=== PATIENT | male | born 1995 | race Caucasian/White ===

== ENCOUNTER 2020-08-01 15:30 | Emergency (ER) | payer SELFPAY ==
[2020-08-01 15:31] VITALS: BP 139/82; PULSE 90; RESP 16; TEMP 36.5; O2SAT 100; BMI 29.9
--- NOTE | 2020-08-01 17:58 | ED.VIS.GEN ---
History of Present Illness Chief Complaint: Lower Extremity Injury Informant: Patient Onset: Today Narrative: Patient sent from urgent care for right foot fracture. He states was on a ladder at 1 PM when the ladder went out, landed on his feet. No head injuries. No neck or back pain. States he took aspirin after the incident. He went to urgent care who took x-rays reported he fractured across his whole foot therefore he sent here. He denies any significant pain at this time. He does not want any medications. No history of fractures. Has had an appendectomy in the past. Denies any allergies. Prior similar symptoms: No Past Medical History - Allergies and Home Meds Allergies/Adverse Reactions: Allergies No Known Allergies Allergy (Verified 08/01/20 15:31) Primary Care Physician: Care Physician,No Primary [Primary Care Provider] - Past Medical History: None Surgical History: appendectomy Review of Systems General: Denies: Chills, Fever, Sweats Eyes: Denies: Visual changes - bilaterally, Diplopia ENT: Denies: Rhinorrhea, Sore throat Cardiovascular: Denies: Chest pain, Palpitations Respiratory: Denies: Dyspnea, Cough, Dyspnea on exertion Gastrointestinal: Denies: Abdominal pain, Nausea, Vomiting, Diarrhea, Melena, Hematochezia Genitourinary: Denies: Dysuria, Hematuria, Frequency Musculoskeletal: Reports: Arthralgias. Denies: Back pain, Extremity Pain Skin: Denies: Rash, Wounds Neurological: Denies: Headache, Weakness, Numbness Physical Exam Vital Signs/Narrative: Vital Signs Temp Pulse Resp BP Pulse Ox 08/01/20 15:31 97.7 F L 90 16 139/82 H 100 Inital Vital Signs reviewed: Yes General: Well nourished, Well developed, No Acute Distress Head: Normocephalic, Atraumatic Eyes: Perrl, EOMI ENT: Moist mucous membranes, No rhinorrhea Neck: Supple, Nontender Cardiovascular: Regular rate, Regular rhythm, No murmurs Respiratory: No distress, CTA bilaterally, Chest nontender Abdomen: Soft, Nontender, Nondistended, Normal bowel sounds Back: Nontender, Normal Inspection Extremities: No edema, - - Right lower extremity no knee or ankle tenderness. There is swelling across the whole dorsal foot, there is tenderness on the dorsal aspect of the foot. Skin is intact. Neurovascular intact. Skin: Normal color, No rash Neurological: Alert, Oriented x3, Cranial nerves II-XII grossly intact, Normal Strength, Normal Sensation Psychological: Normal affect, Normal Mood Diagnostic/Tx/Re-eval Clinical Impression(s) from Imaging Studies Lower Extremity CT 08/01/20 18:35 IMPRESSION: 1. Fracture/dislocation of the first through third tarsometatarsal joints. 2. Fractures of the bases of the fourth and fifth metatarsals without disc placement. Electronically Signed: Ángel Ponce DO at 19:26 EDT Tel [phone], Service support , - Medical Decision Making Patient's outside facility x-rays were loaded into the system I reviewed it, as concerns for Lisfranc injury with fracture dislocations of the bases of the metatarsals. I spoke with Dr. Mckeon, findings. Patient was in no acute distress. Agreed with obtaining a CT scan of the fractures for evaluation for surgical planning. Initially declined any medicines however later did agree with and oxycodone. He was placed in a short leg plaster splint, discussed nonweightbearing, crutches. Prescription for pain control. He will be seen as an outpatient the next few days. Procedure note: Splinting verbal consent. Nylon sleeve, Curlex dressing was placed. A 5 inch short leg plaster splint was placed, Reji wrap. Neurovascular intact post splint. Patient tolerated procedure well. ED Disposition - Plan for ED Patient: Disposition: Home or Assisted Living Diagnosis: Lisfranc fracture, Lisfranc dislocation Instructions: ED FOOT FRACTURE Prescriptions: Oxycodone HCl/Acetaminophen [Percocet 5/325] 1 tablet PO Q6H PRN PRN 3 Days #12 tablet PRN Reason: Pain Referrals: Care Physician,No Primary [Primary Care Provider] - Megha Mckeon DPM [STAFF PHYSICIAN] - 3-5 Days Additional Instructions: You have a Lisfranc fracture dislocation of your right foot. Nonweightbearing to the right lower extremity use crutches. Follow-up as discussed.
[2020-08-01] MEDS: oxyCODONE 5 MG Tablet PO (18:25)
--- NOTE | 2020-08-01 18:35 | CT_ITS ---
STUDY: CT RIGHT FOOT REASON FOR EXAM: Male, 25 years old. Fall from ladder. RADIATION DOSAGE (If Supplied By Facility): CTDIvol = ( 15.35 ) mGy, DLP = ( 499.60 ) mGycm TECHNIQUE: Thin section transaxial imaging of the foot was obtained, with sagittal and coronal reconstructed images. 3-D reconstruction was also performed. Individualized dose optimization techniques were used for this CT. COMPARISON: Foot, 08/01/2020. FINDINGS: Normal talus, calcaneus, and tarsal bones. Normal visualized tibiotalar, subtalar, talonavicular, calcaneocuboid, tarsal and tarsometatarsal articulations. There is a longitudinal fracture through the first metatarsal with dorsal displacement of the larger fragment. The inferior fragment stays in roughly anatomic position. There is also a fracture of the plantar base of the second metatarsal with dorsal dislocation. Multiple small fracture fragments are seen inferior to the middle cuneiform. There is a small chip fracture off the medial base of the third metatarsal. This is thought to be a small chip fracture is also seen along the inferior base again mild dorsal dislocation is seen of the metatarsal. There is a small chip fracture off the plantar base of the fourth metatarsal without dislocation. There is a transverse fracture through the base of the fifth metatarsal without displacement. Normal metatarsophalangeal joint of the great toe. Normal tibial and fibular sesamoid bones. Normal interphalangeal joint of the great toe. Normal phalanges of the great toe. Normal second through fifth metatarsophalangeal joints. Normal interphalangeal joints and phalanges of the lesser toes. There is diffuse soft tissue swelling about the midfoot. CT/Extremity Lower without Contra IMPRESSION: 1. Fracture/dislocation of the first through third tarsometatarsal joints. 2. Fractures of the bases of the fourth and fifth metatarsals without disc placement. Electronically Signed: Ángel Ponce DO at 19:26 EDT Tel [phone], Service support ,
== END 2020-08-01 20:16 | disposition home or self-care (01) ==
PROVIDERS: Emergency Provider Emergency Medicine
DX: S92.311A Displaced fracture of first metatarsal bone, right foot, initial encounter for closed fracture (principal); S92.321A Displaced fracture of second metatarsal bone, right foot, initial encounter for closed fracture; S92.331A Displaced fracture of third metatarsal bone, right foot, initial encounter for closed fracture; S92.344A Nondisplaced fracture of fourth metatarsal bone, right foot, initial encounter for closed fracture; S92.354A Nondisplaced fracture of fifth metatarsal bone, right foot, initial encounter for closed fracture; W11.XXXA Fall on and from ladder, initial encounter; Y93.89 Activity, other specified; Y92.9 Unspecified place or not applicable; Y99.9 Unspecified external cause status
CPT/HCPCS: 29515; 73700; 99284

== ENCOUNTER → 2020-08-02 14:44 | Outpatient (CLI) | payer OTHER, SELFPAY ==
[2020-08-01 15:31] VITALS: BMI 29.9
== END ==
PROVIDERS: Visit Provider Podiatrist
DX: Z01.810 Encounter for preprocedural cardiovascular examination (principal); S93.326A Dislocation of tarsometatarsal joint of unspecified foot, initial encounter

== ENCOUNTER 2020-08-04 18:46 | Observation (INO) | payer OTHER, SELFPAY ==
[2020-08-02 18:16] LABS: Absolute Lymphocyte Count 0.96 X10^3/uL (0.83-4.51); Absolute Neutrophil Count 4.7 X10^3/uL (2.0-7.7); Basophil# 0.04 X10^3/uL; Basophil% 0.6 % (0-1); Eosinophil# 0.14 X10^3/uL; Eosinophils% 2.1 % (0-5); Hematocrit 40.1 % (40-54); Hemoglobin 13.2 g/dL (13.0-16.5); Lymphocyte # 0.96 X10^3/ul (4.0); Lymphocyte % 14.6 % (19-41); Mean Corp Hgb Conc 32.9 g/dL (32-36); Mean Corpuscular Hgb 30.2 pg (27.0-32.0); Mean Corpuscular Volume 91.8 fL (80-94); Mean Platelet Vol. 10.9 fl (6.2-12.0); Monocyte# 0.77 X10^3/uL; Monocyte% 11.7 % (0-10); NRBC Flagged by Analyzer 0 % (0-5); Neutrophil # 4.65 X10^3/uL (2.7-7.7); Neutrophil % 70.8 % (47-70); Platelet Count 240 K/mm3 (150-450); RBC Distribution Width CV 12.4 % (11.6-14.6); Red Blood Count 4.37 M/mm3 (4.6-6.2); White Blood Count 6.6 K/mm3 (4.4-11.0)
[2020-08-02 18:33] LABS: ALB/GLOB Ratio 1.1 RATIO (0.9-2.4); AST(SGOT) 17 U/L (15-37); Alanine Aminotransfer ALT/SGPT 26 U/L (16-61); Albumin, Serum 3.9 g/dL (3.2-5.0); Alkaline Phosphatase 79 U/L (45-117); Anion Gap 4 (5-15); BUN 12 mg/dL (7-18); BUN/Creat Ratio 12.7 RATIO (10-20); Chloride 106 mmol/L (98-107); Creatinine, Serum 0.94 mg/dL (0.70-1.30); EST Glomerular Filtration Rate 102 mL/min (>60); Est Glom Filt Rate - Afr Amer 123 mL/min (>60); Globulin 3.4 g/dL (2.2-4.2); Glucose 103 mg/dL (74-106); Potassium 3.7 mmol/L (3.5-5.1); Protein, Total 7.3 g/dL (6.4-8.2); Sodium Level 139 mmol/L (136-145)
[2020-08-04] VITALS (9 sets, daily range): BP systolic 101–137; BP diastolic 63–84; PULSE 68–106; RESP 14–16; TEMP 36.8–37.4; O2SAT 93–100; BMI 30.8
[2020-08-04] MEDS: Lactated Ringers 1,000 ML 75 ML IV ×2 (12:09→18:40)
--- NOTE | 2020-08-04 13:00 | RAD_ITS ---
STUDY: X-RAY - RIGHT FOOT CLINICAL: Male, 25 years old. ORIF midfoot fracture dislocation TECHNIQUE: 3 view(s) of the foot. COMPARISON: None. FINDINGS: Intraoperative images demonstrate surgical fusions of the first through fourth tarsometatarsal joints and a fracture of the base of the first metatarsal. Alignment is near normal. RAD/Foot min 3 Views IMPRESSION: As above. Electronically Signed: Boaz Kirby MD at 22:10 EDT Tel , Service support ,
[2020-08-04] MEDS: Cefazolin 2 GM in 0.9% Normal Saline 100 ML IV (13:04)
[2020-08-04] MEDS: Bupivacaine Mpf 0.5% 30 ML VIAL (13:38)
--- NOTE | 2020-08-04 18:41 | OP.PCM_ITS ---
Problem List (1) Lisfranc fracture Status: Acute Comment: right foot (2) Nondisplaced fracture of metatarsal bone of right foot Status: Acute (3) Dislocation of foot, right, closed Status: Acute (4) Right foot pain Status: Acute Report of Operation Date of Procedure: 08/04/20 Pre-Operative Diagnosis: Right midfoot fractures (metatarsal 1,2,3,4,5) and lis franc dislocation Post-Operative Diagnosis: Right midfoot fractures (metatarsal 1,2,3,4,5) and lis franc dislocation Surgery/Procedure Performed:: Open reduction internal fixation of right Lisfranc fracture dislocation and metatarsal fracture of first metatarsal Description of Surgical Findings:: Hemostasis: Anatomic dissection and well-padded pneumatic right thigh tourniquet, 315 mmHg, 120 minutes Materials: Three 2.5 FT compression screws, one 0.045 K wire, one lis franc i nternal FiberWire brace, two 3.0 cannulated partially threaded screws, one low- profile T-plate (8 hole) Complications: None Specimens: None The patient tolerated the procedure and anesthesia well. He was transported to the PACU with vital signs stable and vascular status intact to the right lower extremity. Postoperative x-rays were reviewed prior to leaving the operating room with traumatic deformity correction with internal fixation to the first, second, third, and fourth rays in the desired position and trajectory. No additional acute injuries were noted. Postoperative orders were entered electronically. cma: yes - surgeon: Megha Mckeon DPM. 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 His date of injury was 08-01-2020. He was seen at the urgent and emergency centers in which he was pl aced in a posterior mold splint. He refused pain medications. Foot radiographs and a CT scan were obtained demonstrating nondisplaced fractures of the plantar second, third, fourth metatarsal bases, nondisplaced fracture of the fifth metatarsal base, displaced fracture of the plantar first metatarsal base extending into the the diaphysis, lis franc injury with significant diastases of the proximal first intermetatarsal space. There is also dorsal displacement of the second, third, and fourth metatarsal bases dorsally to the adjacent cuneiforms and cuboid. His epicritic sensation was diminished to the toes on clinical exam. His compartments remained soft to palpate. He had pain, apprehension, and guarding noted clinically. His dorsalis pedis and posterior tibial pulse remained palpable. The preoperative indications, planned procedure, possible benefits, risk, complications, and anticipated healing time and management were reviewed in detail with the patient. He understands and elects to proceed with surgery at this time. No guarantees were made. He understands risks and complications may include but are not limited to following: pain, swelling, scarring, need for further surgery, delayed or nonhealing, infection, blood clot, allergic reaction, arthritis, hardware failure, toe deformities, compartment syndrome, loss of limb, function, life. He also understands that there is an inherent risk during the coronavirus pandemic with being present in any healthcare facility. He understands our community risk is very low at this time and recommended safety precautions are being adhered to. This is not an elective surgery. I recommend the benefits appear to outweigh the risks for surgical correction at this time to provide a more stable and functional foot. I answe red all of his questions. We discussed surgical options and he is amendable to proceed forward with open reduction internal fixation versus arthrodesis as a last measure. The informed surgical consent and limb were signed. I answered all his questions. His preoperative history and physical and clearance exam performed by Dr. Daniel were also reviewed in detail. His preoperative diagnostic laboratory data including CBC and CMP were also reviewed without gross abnormalities. Procedure in detail: The patient was transported to the operating room via cart and placed on the operating room table in the supine position. Final verification of the patient, surgery, and limb designation was performed via the timeout procedure. The anesthesia team initiated general anesthesia. The podiatry team initiated the local preoperative anesthetic administration. Preoperative IV antibiotics were administered. A well-padded pneumatic right thigh tourniquet was placed. The right lower extremity was prepped and draped in the usual aseptic manner. An Esmarch bandage was used to perform exsanguination and surgery began after the tourniquet was inflated in the following manner: Attention was first directed to the medial foot in which an incision was made through the skin over the injury zone. Blunt dissection was performed down to the first metatarsal cuneiform area distal to the mid first metatarsal diaphysis taking care to identify, protect, and retract all neurovascular structures at this point and throughout the remainder of the surgery. The oblique cortical interruption to the plantar first metatarsal was mobilized and held with reduction clamp in which two screws were applied utilizing lag technique with proper AO fixation technique also. Next, FT compression screws were applied across the first metatarsal cuneiform joint that was hypermobile and subluxing in the sagittal plane. Intraoperative fluoroscopy was used to confirm the desired trajectory and adequate fixation was obtained. Solid fixation was achieved. An additional incision was made to the dorsal lateral foot between the second and third rays through the skin. Again, blunt dissection was performed to preserve all neurovascular structures in this region. An interval between the extensor hallucis longus and extensor digitorum brevis tendons was identified. The dorsally dislocated metatarsal bases were palpated and visualized. The digits were pulled out to length and the windlass mechanism was created to aid in reduction of the lis franc and remaining metatarsal cuneiform joints. An additional reduction tenaculum was applied to the second metatarsal base and the first medial cuneiform to reduce the diastases. Next, a nitinol looped FiberWire was applied across the anatomic location of the [place] Lisfranc ligament to allow the passage of a FiberWire internal brace. This was performed and tightened to a secured position using a Bio-Tenodesis interface screw to the medial cuneiform. The tenaculum was released and this joint was stressed demonstrating maintained fixation. The tourniquet was deflated at this time and brisk capillary refill time was noted to all digits of the right foot. No pulsatile bleeding was noted at this time or throughout the remainder of surgery. Next, a spanning 8 hole T-plate was applied to the dorsal second ray. Care was taken to leave proximal room for an additional intercuneiform internal brace placement and distally to span the area of the second metatarsal base fracture. Proper AO fixation technique was utilized and the second ray moved as a solid stable unit. No diastases was noted at the proximal first intermetatarsal space region. Next, a new interval was used to help visualize the third metatarsal base cuneiform area was mobilized adjacent to the extensor digitorum brevis. An additional mini FT compression screw was applied across this third metatarsal cuneiform joint surface utilizing proper AO fixation technique. It is noted that the third metatarsal base fracture site was at the most plantar aspect and this would not have interfered with the placement of the screw. An additional K wire was used to temporarily pin the fourth metatarsal to the cuboid due to the subluxation at this site as well. Lastly, the intercuneiform internal brace was applied into the proximal dorsal aspect of the second metatarsal base by creating a tunnel deep to the dorsal foot soft tissue anatomy. This was secured and additionally eliminated intercuneiform laxity to provide additional stability to this entire construct. Multiple postoperative x-rays were reviewed demonstrating adequate fixation including deformity reduction, hardware placement in the desired position and trajectory. Live fluoroscopy was also performed and there was no longer any instability or subluxation. Copious irrigation was performed with normal saline. Deep closure was performed with 2-0 Vicryl. Additional deep closure was performed with 3-0 Vicryl. The skin was reapproximated with 4-0 nylon utilizing horizontal mattress and simple suture technique. There was limited tension applied to the skin and care was taken to maintain an appropriate skin island between the two incision sites. Next, a postoperative dressing consisting of Betadine soaked Adaptic, gauze, Kerlix, abdominal pads were applied. Next a well-padded posterior mold splint was applied extending past the digits with the foot and ankle in a rectus position. After procedure: The patient tolerated the procedure and anesthesia well. He was transported to the PACU with vital signs stable and vascular status intact to the right lower extremity. He will stay under observation status for pain control. He was advised to maintain a strict nonweightbearing status. To ice and elevate for pain inflammation as well. He had a postoperative right lower extremity regional block performed by anesthesia. Additional intravenous and oral pain medications were ordered if needed as this regional block wears off. I will reassess him tomorrow prior to discharge. He will work on maintaining a nonweightbearing status to the right foot with physical therapy prior to discharge as well. Postoperative orders were entered electronically. Megha Mckeon DPM, [facility] [place] Grafts/Implants Used: arthex plate and screws, k-wire, internal brace - Complications none - Admit VTE Documentation VTE Present on Admission: No VTE Mechan Device Prophylaxis: SCD's VTE Pharm Prophylaxis ordered?: No Reason prophylaxis not ordered:: Procedure Not Indicated
--- NOTE | 2020-08-04 19:06 | RAD_ITS ---
STUDY: X-RAY - RIGHT FOOT CLINICAL: Male, 25 years old. POST OP RIGHT FOOT TECHNIQUE: 3 view(s) of the foot. COMPARISON: 08/01/2020 FINDINGS: Surgical fusions of the first through fourth tarsometatarsal joints with normal alignment. Surgical fusion of the base of the first metatarsal with normal alignment. Fracture of the base of the fifth metatarsal. Soft tissue swelling. RAD/Foot min 3 Views IMPRESSION: Postoperative changes as described. Fracture of the base of the fifth metatarsal. Electronically Signed: Boaz Kirby MD at 23:43 EDT Tel , Service support ,
--- NOTE | 2020-08-04 20:02 | HP.PCM_ITS ---
Problem List (1) Lisfranc fracture Status: Acute (2) Nondisplaced fracture of metatarsal bone of right foot Status: Acute (3) Dislocation of foot, right, closed Status: Acute (4) Right foot pain Status: Acute History of Present Illness Date of Admission: 08/04/20 Chief Complaint: right foot fractures The patient is a 25 year old Male that sustained a right midfoot fracture dislocation injury when he fell off of a ladder on 08-01-2020. He fell from a height of approximately 8 feet. He presented to the urgent center and was then seen in the emergency room where he was splinted. A CT scan was obtained. This is considered an unstable injury and he went for open reduction internal fixation today. He denies other injuries or complaints at this time. Past Medical History Allergies No Known Allergies Allergy (Verified 08/02/20 15:19) Surgical History: appendectomy Psychiatric History: No pertinent psych hx Lives: Spouse/ Significant Other - And 2 children Smoking Status: Former smoker - Quit April 2020 Tobacco Use: Non-smoker Alcohol: None Drugs: None Review of Systems Constitutional: Denies: Chills, Fever Eyes: Denies: Vision Change HEENT: Denies: Hard of Hearing, Nasal Congestion, Sore Throat, Visual Changes Cardiovascular: Denies: Chest Pain, Claudication, Edema Respiratory: Denies: Cough, Shortness of Breath Gastrointestinal: Denies: Nausea, Vomiting Musculoskeletal: Reports: Foot Pain. Denies: Back Pain, Leg Pain Skin: Denies: Skin Changes, Wounds Neurological: Denies: Balance problems, Blurred vision, Incoordination, Numbness Endocrine: Denies: Change in Body Habitus Hematologic/ Lymphatic: Denies: Easy Bruising, Easy Bleeding, Hx of blood clot VTE Information - Inpt Only VTE Present on Admission: No VTE Mechan Device Prophylaxis: SCD's VTE Pharm Prophylaxis ordered?: No Reason prophylaxis not ordered:: Procedure Not Indicated Patient Problems: Active and Suspected Problems Lisfranc fracture (Acute) Nondisplaced fracture of metatarsal bone of right foot (Acute) Dislocation of foot, right, closed (Acute) Right foot pain (Acute) - Physical Exam Vitals/I&O's: Vital Signs Temp Pulse Resp BP Pulse Ox 98.3 F 95 16 126/67 H 98 08/04/20 19:39 08/04/20 19:39 08/04/20 19:39 08/04/20 19:39 08/04/20 19:39 Oxygen Delivery Method Room Air Weight: 97.522 kg Body Mass Index (BMI) 30.8 Intake and Output for Last 24 Hours 08/02/20 08/03/20 08/04/20 23:59 23:59 23:59 Intake Total 2109 Balance 2109 General: Alert, Oriented x3, Cooperative HEENT: Atraumatic, PERRLA, EOMI, Normocephalic Oral: Moist Mucosa Neck: Supple Lungs: Clear to auscultation, Normal air movement Cardiovascular: Regular rate, Regular Rhythm Abdomen: Non Tender, Non-Distended Extremities: Capillary Refill Less than 3 Seconds, No Calf Tenderness, Edema - Right foot, Peripheral Pulses Normal Skin: No breakdown, Incision - Now he is postoperative with a dorsal and medial foot incision. Postoperative dressing is intact with a splint in a rectus position, - - Ecchymosis midfoot extending to the digital forefoot area Musculoskeletal: No Muscle Wasting, - - Compartments remain soft to the right foot and it remains in a rectus position. He has some reduced edema with some wrinkles noted compared to clinical visit 2 days ago Lymphatic: - - No cervical or supraclavicular adenopathy Neurological: Cranial nerves II-XII grossly intact, Neuro grossly intact, Muscle tone normal, Sensory exam intact to light touch and pain Psych/Mental Status: Normal Affect, Appropriate Current Medications Hydrocodone Bitart/Acetaminophen ([place] 5mg-325mg) 1 - 2 tablet PO Q6H PRN PRN PRN Reason: Pain Score 1-5/10 Docusate Sodium (Colace) 200 mg PO BID PRN PRN PRN Reason: Constipation Lactated Ringer's () 1,000 mls @ 75 mls/hr IV .[id number] HUGO Last Admin: 08/04/20 18:40 Dose: 75 mls/hr Documented by: Morphine Sulfate () 2 mg IV Q2H PRN PRN PRN Reason: Pain Score 6-10/10 Ondansetron HCl (Zofran) 4 mg IV Q8H PRN PRN PRN Reason: Nausea Sodium Chloride () 10 - 40 ml IV UD PRN PRN Reason: SALINE FLUSH Assessment/Plan All Active Problems Lisfranc fracture (Acute) Nondisplaced fracture of metatarsal bone of right foot (Acute) Dislocation of foot, right, closed (Acute) Right foot pain (Acute) Postoperative right lis franc fracture dislocation open reduction internal fixation Right foot pain He is postoperative right foot from earlier today. His postoperative x-rays were reviewed prior to leaving the operating room which demonstrated traumatic deformity reduction with internal fixation including plates, screws, and wire in the desired position and trajectory. No acute injuries were additionally noted. To keep his dressing and splint clean, dry, and intact. To ice and elevate for inflammation and pain control. He was provided with a right lower extremity regional block postoperative. He will also be provided with IV and oral pain medications if needed as this regional block will wear off. He will be monitored for pain control. Strict nonweightbearing was advised. He will be provided with an assistive device and work with physical therapy in the morning. He does not have any known medical comorbidities and denies history of blood clot. SCDs to the contralateral limb, incentive spirometry, and activity will be encouraged. I will follow him close while in house. code status: full code Megha Mckeon DPM, [facility] [phone]
[2020-08-05] MEDS: HYDROcodone Bitartrate/Apap 5/325 Tablet PO ×3 (01:21→09:34)
[2020-08-05 01:50] VITALS: BP 116/64; PULSE 79; RESP 16; TEMP 37.6; O2SAT 100
[2020-08-05] MEDS: Lactated Ringers 1,000 ML 75 ML IV (03:27)
[2020-08-05 03:31] VITALS: BP 104/56; PULSE 80; RESP 18; TEMP 37.4; O2SAT 99
[2020-08-05] MEDS: Morphine 2 MG/ML Syringe IV ×3 (06:13→10:38)
[2020-08-05 07:30] VITALS: BP 136/64; PULSE 78; RESP 16; TEMP 36.8; O2SAT 100
[2020-08-05] MEDS: Ketorolac 30 MG/ML Syringe IV ×2 (11:28→20:16)
[2020-08-05 11:58] VITALS: BP 160/83; PULSE 84; RESP 16; TEMP 36.9; O2SAT 99
[2020-08-05] MEDS: oxyCODONE 5 MG Tablet PO (13:07)
--- NOTE | 2020-08-05 13:07 | PCM.PROGNOTE ---
Patient Problems: Active and Suspected Problems (Last Updated 08/04/20 @ 21:[address] Megha Mckeon, [facility]) Lisfranc fracture (Acute) right foot Nondisplaced fracture of metatarsal bone of right foot (Acute) Dislocation of foot, right, closed (Acute) Right foot pain (Acute) Subjective: This 25-year-old male was seen bedside postoperative day #1 right open reduction internal fixation of Lisfranc fracture dislocation. His pain is rated as a 9 out of 10 at worst. He relates his foot feels very tight. He does have some additional feeling in his toes compared to his preoperative status. He denies fever, chill, nausea, vomiting, shortness of breath, chest pain, calf pain. - Physical Exam Vitals/I&O's: Vital Signs Temp Pulse Resp BP Pulse Ox 98.4 F 84 16 160/83 H 99 08/05/20 11:58 08/05/20 11:58 08/05/20 11:58 08/05/20 11:58 08/05/20 11:58 Oxygen Delivery Method Room Air Weight: 97.522 kg Body Mass Index (BMI) 30.8 Intake and Output for Last 24 Hours 08/03/20 08/04/20 08/05/20 23:59 23:59 23:59 Intake Total 3350 / 3350 2383.75 / 2383.75 Output Total 1250 / 1250 2750 / 2750 Balance 2099 / 2099 -366.25 / -366.25 General: Alert, Oriented x3, Cooperative HEENT: Atraumatic Extremities: No cyanosis, Capillary Refill Less than 3 Seconds - All digits right foot, No Calf Tenderness - Negative Rodney and Kathleen sign. Compartments remain soft to palpate to the right foot and leg, Edema, Peripheral Pulses Normal Skin: Incision - Well aligned and coapted with nylon sutures in place. No necrosis, erythema, streaking, or gapping. There is also a dorsal lateral foot K wire that remains in the desired position., - - Mild serosanguineous strikethrough right foot dressing Musculoskeletal: No Muscle Wasting, - - Active range of motion of all digits right foot Neurological: - - Epicritic sensation is intact to all digits of the right foot and has been restored to the dorsal aspects of all the toes except it is slightly diminished to the dorsal second toe. The epicritic sensation is also restored to light touch to the dorsal forefoot. Psych/Mental Status: Normal Affect, Appropriate Current Medications Docusate Sodium (Colace) 200 mg PO BID PRN PRN PRN Reason: Constipation Lactated Ringer's () 1,000 mls @ 75 mls/hr IV .[id number] HUGO Last Infusion: 08/05/20 11:47 Dose: 0 mls/hr Documented by: Morphine Sulfate () 3 mg IV Q2H PRN PRN PRN Reason: Pain Score 6-10/10 Ondansetron HCl (Zofran) 4 mg IV Q8H PRN PRN PRN Reason: Nausea Oxycodone HCl (Oxyir) 5 mg PO Q6H PRN PRN PRN Reason: Pain Score 6-10/10 Sodium Chloride () 10 - 40 ml IV UD PRN PRN Reason: SALINE FLUSH Medical Necessity - Tobacco Use Smoking Status: Former smoker - Quit April 2020 Tobacco Use: Non-smoker Assessment/Plan All Active Problems (Last Updated 08/04/20 @ 21:[address] Megha Mckeon DPM) Lisfranc fracture (Acute) Nondisplaced fracture of metatarsal bone of right foot (Acute) Dislocation of foot, right, closed (Acute) Right foot pain (Acute) POD #1 right lis franc fracture dislocation open reduction internal fixation Right foot pain I reviewed and discussed his case. He is currently afebrile and his vital signs are stable. His pain is uncontrolled and his pain medications were changed to an increased IV and oral medication. He was also provided with intravenous Toradol. A new dressing was reapplied including the splint. To keep his dressing and splint clean, dry, and intact. To ice and elevate for inflammation and pain control. I will continue to monitor him this afternoon to confirm if additional pain medication adjustments are needed. His pain will need to be better controlled prior to discharge home. Strict nonweightbearing was advised. He is nonweightbearing with crutch assistance. He worked with physical therapy at this point he did well. SCDs to the contralateral limb, incentive spirometry, and activity will be encouraged. I will follow him close while in house. Discharge home this afternoon or tomorrow be considered after his pain is better controlled. He would like to oyster picker his discharge medication at [facility] if possible. Megha Mckeon DPM, F[facility] [phone]
--- NOTE | 2020-08-05 13:45 | CASEMGMT ---
Social Work Note Pt is listed as self pay. Maribel [facility] Liaison, saw pt. Per Maribel notes, pt will have his dad reach out to [facility] and was also interested in [employer]. Martha Cardoza [employer]DI[employer] TRAD[employer], HAND HOSE CUTTER
[2020-08-05] MEDS: 0.9% Saline Lock 10 ML Syringe IV ×3 (14:33→20:17)
[2020-08-05] MEDS: Morphine 4 MG/ML Syringe 3 MG IV ×2 (14:34→18:18)
[2020-08-05 14:49] VITALS: BP 153/77; PULSE 73; RESP 16; TEMP 36.8; O2SAT 99
[2020-08-05] MEDS: HYDROmorphone 0.5 MG/0.5 ML SYRINGE IV (20:16)
[2020-08-05 20:50] VITALS: BP 144/84; PULSE 99; RESP 16; TEMP 38.3; O2SAT 99
[2020-08-06] MEDS: HYDROmorphone 0.5 MG/0.5 ML SYRINGE IV (02:24)
[2020-08-06] MEDS: 0.9% Saline Lock 10 ML Syringe IV (02:24)
[2020-08-06 02:50] VITALS: BP 142/80; PULSE 91; RESP 16; TEMP 37.6; O2SAT 97
[2020-08-06] MEDS: oxyCODONE 5 MG Tablet PO ×2 (05:42→11:38)
[2020-08-06 08:48] VITALS: BP 130/81; PULSE 87; RESP 18; TEMP 37.7; O2SAT 100
--- NOTE | 2020-08-06 10:11 | PCM.PROGNOTE ---
Patient Problems: Active and Suspected Problems (Last Updated 08/04/20 @ 21:[address] Megha Mckeon, [facility]) Lisfranc fracture (Acute) right foot Nondisplaced fracture of metatarsal bone of right foot (Acute) Dislocation of foot, right, closed (Acute) Right foot pain (Acute) Subjective: This 25-year-old male was seen bedside postoperative day #2 right open reduction internal fixation of Lisfranc fracture dislocation. His pain is rated as a 6 out of 10 at worst and he has not taken IV narcotic pain medication for over eight hours. He denies chill, nausea, vomiting, shortness of breath, chest pain, calf pain, cough. He relates he had a temperature in the 99s earlier today. He reports he has not had a bowel movement since surgery however denies constipation. He denies urinary retention since surgery. He reports some burning to the top of his foot and denies the dressing is too tight today. He would like to return home. - Physical Exam Vitals/I&O's: Vital Signs Temp Pulse Resp BP Pulse Ox 99.9 F H 87 18 130/81 H 100 08/06/20 08:48 08/06/20 08:48 08/06/20 08:48 08/06/20 08:48 08/06/20 08:48 Oxygen Delivery Method Room Air Weight: 97.522 kg Body Mass Index (BMI) 30.8 Intake and Output for Last 24 Hours 08/04/20 08/05/20 08/06/20 23:59 23:59 23:59 Intake Total 3350 / 3350 3183.75 / 3183.75 Output Total 1250 / 1250 4350 / 4350 Balance 2100 / 2100 -1166.25 / -1166.25 General: Alert, Oriented x3, Cooperative HEENT: Atraumatic, Normocephalic Lungs: Clear to auscultation, Normal air movement Cardiovascular: Regular rate, Regular Rhythm Extremities: No cyanosis, No edema, No Calf Tenderness - negative dex and garcia signs Skin: - - dressing and splint clean, dry, and intact in a rectus position. no strikethrough noted Musculoskeletal: No Tenderness to Palpation of Joints or Extremities, - - AROM all digits right foot Neurological: Sensory exam intact to light touch and pain Psych/Mental Status: Normal Affect, Appropriate Current Medications Docusate Sodium (Colace) 200 mg PO BID PRN PRN PRN Reason: Constipation Hydromorphone HCl (Dilaudid Inj) 0.5 mg IV Q2H PRN PRN PRN Reason: Pain Score 6-10/10 Last Admin: 08/06/20 02:24 Dose: 0.5 mg Documented by: Lactated Ringer's () 1,000 mls @ 75 mls/hr IV .[id number] HUGO Last Admin: 08/05/20 16:35 Dose: Not Given Documented by: Ketorolac Tromethamine (Toradol (Bkc)) 30 mg IV Q8H PRN PRN PRN Reason: Pain Score 4-1010 Stop: 08/07/20 19:36 Last Admin: 08/05/20 20:16 Dose: 30 mg Documented by: Ondansetron HCl (Zofran) 4 mg IV Q8H PRN PRN PRN Reason: Nausea Oxycodone HCl (Oxyir) 5 mg PO Q6H PRN PRN PRN Reason: Pain Score 6-1010 Last Admin: 08/06/20 05:42 Dose: 5 mg Documented by: Sodium Chloride () 10 - 40 ml IV UD PRN PRN Reason: SALINE FLUSH Medical Necessity - Tobacco Use Smoking Status: Former smoker - Quit April 2020 Tobacco Use: Non-smoker Assessment/Plan All Active Problems (Last Updated 08/04/20 @ 21:[address] Megha Mckeon, [facility]) Lisfranc fracture (Acute) Nondisplaced fracture of metatarsal bone of right foot (Acute) Dislocation of foot, right, closed (Acute) Right foot pain (Acute) POD #2 right lis franc fracture dislocation open reduction internal fixation Right foot pain I reviewed and discussed his case. His vital signs are stable. He had a low grade fever in the 99 and low 100 range. This may be reactive to anesthesia in the immediate post operative setting or constipation. He is asymptomatic otherwise. To stay hydrated. To monitor for any additional changes after discharge home. He would like to transition home this morning. He has elected not to take IV pain medication for the past eight hours. To ice and elevate for inflammation and pain control. Strict nonweightbearing was advised. He is nonweightbearing with crutch assistance. To continue incentive spirometry. [facility] in one to one and a half weeks. Discharge orders will be placed. Megha Mckeon DPM, F[facility] [phone]
--- NOTE | 2020-08-06 10:34 | DS.PCM_ITS ---
Discharge Date and Diagnosis - Problem List Patient Problems: Active and Suspected Problems (Last Updated 08/04/20 @ 21:[address] Megha Mckeon DPM) Lisfranc fracture (Acute) right foot Nondisplaced fracture of metatarsal bone of right foot (Acute) Dislocation of foot, right, closed (Acute) Right foot pain (Acute) Date of Admission: 08/04/20 Date of Discharge: 08/06/20 - Primary Discharge Diagnosis Acute Problems: Active Problems (Last Updated 08/04/20 @ 21:[address] Megha Mckeon DPM) Lisfranc fracture (Acute) right foot Nondisplaced fracture of metatarsal bone of right foot (Acute) Dislocation of foot, right, closed (Acute) Right foot pain (Acute) Suspected Problems: Status post open reduction internal fixation right midfoot fractures and dislocation - Secondary Discharge Diagnosis Chronic Problems: none Hospital Course and Treatment Imaging Results: Preoperative right foot x-rays and preoperative CT scan right foot: Displaced fracture first metatarsal base and diaphysis, nondisplaced fractures of the bases of the second, third, fourth, and fifth metatarsals, dislocation of the Lisfranc complex including subluxation of the second, third, and fourth metatarsal cuneiform and cuboid articulations. Postoperative right foot (3 views, AP, lateral, oblique): Status post open reduction internal fixation of midfoot fracture dislocation with screws, K wire, and T plate in the desired position and trajectory. No acute injuries are noted. Traumatic deformity reduction has been achieved. Operations: - - Open reduction internal fixation right midfoot Procedures: None Summary of Care Provided: The patient is a 25 year old M with no known significant past medical history was admitted postoperative right midfoot open reduction internal fixation for fracture dislocation treatment. He was admitted for pain control. His pain was stabilized with IV and oral pain medications including narcotics and anti- inflammatory medications. He worked with physical therapy to maintain a strict nonweightbearing position of the right lower extremity with crutch assistance. Patient Problems: Active and Suspected Problems (Last Updated 08/04/20 @ 21:[address] Megha Mckeon DPM) Lisfranc fracture (Acute) right foot Nondisplaced fracture of metatarsal bone of right foot (Acute) Dislocation of foot, right, closed (Acute) Right foot pain (Acute) - Physical Exam Vitals/I&O's: Vital Signs Temp Pulse Resp BP Pulse Ox 99.9 F H 87 18 130/81 H 100 08/06/20 08:48 08/06/20 08:48 08/06/20 08:48 08/06/20 08:48 08/06/20 08:48 Oxygen Delivery Method Room Air Weight: 97.522 kg Body Mass Index (BMI) 30.8 Intake and Output for Last 24 Hours 08/04/20 08/05/20 08/06/20 23:59 23:59 23:59 Intake Total 3350 / 3350 3183.75 / 3183.75 Output Total 1250 / 1250 4350 / 4350 Balance 2100 / 2100 -1166.25 / -1166.25 General: Alert, Oriented x3, Cooperative HEENT: Atraumatic Lungs: Clear to auscultation, Normal air movement Cardiovascular: Regular rate, Regular Rhythm Extremities: Capillary Refill Less than 3 Seconds, No Calf Tenderness - Negative Rodney and Kathleen sign bilateral, Edema, Peripheral Pulses Normal Skin: - - Postoperative dressing right foot clean, dry, and intact. Musculoskeletal: No Muscle Wasting, - - Active range of motion digits to all digits right foot. Compartments remain soft right lower extremity Neurological: Sensory exam intact to light touch and pain - With diminished dorsal forefoot epicritic sensation consistent with preoperative status Psych/Mental Status: Normal Affect, Appropriate Current Medications Docusate Sodium (Colace) 200 mg PO BID PRN PRN PRN Reason: Constipation Hydromorphone HCl (Dilaudid Inj) 0.5 mg IV Q2H PRN PRN PRN Reason: Pain Score 6-10/10 Last Admin: 08/06/20 02:24 Dose: 0.5 mg Documented by: Lactated Ringer's () 1,000 mls @ 75 mls/hr IV .[id number] [facility] Last Admin: 08/05/20 16:35 Dose: Not Given Documented by: Ketorolac Tromethamine (Toradol (Bkc)) 30 mg IV Q8H PRN PRN PRN Reason: Pain Score 4-10/10 Stop: 08/07/20 19:36 Last Admin: 08/05/20 20:16 Dose: 30 mg Documented by: Ondansetron HCl (Zofran) 4 mg IV Q8H PRN PRN PRN Reason: Nausea Oxycodone HCl (Oxyir) 5 mg PO Q6H PRN PRN PRN Reason: Pain Score 6-10/10 Last Admin: 08/06/20 05:42 Dose: 5 mg Documented by: Sodium Chloride () 10 - 40 ml IV UD PRN PRN Reason: SALINE FLUSH Discharge Diet: No Restrictions Discharge Activity: May Shower Ice area for (Minutes): 15 - apply behind knee Weight Bearing Status: No weight bearing Keep extremity elevated above heart level: Right Leg Additional Activity Instructions:: Use incentive spirometer hourly while awake. Call your doctor if your incision/area has: Continuous Slow Oozing, Sudden Increased Bleeding, Increased Pain/ Swelling, Increased Redness, Foul Smelling Discharge, Swelling at the incision site Call your doctor if you observe: Fever of 101 or Higher, Numbness or Tingling, Shortness of breath, Calf discomfort, Uncontrolled pain Cleanse incision/area with: Keep Dressing Clean & Dry Home Medications: Medications to take at Discharge Naproxen 500 mg PO BID 15 Days #30 tab 08/06/20 Oxycodone HCl/Acetaminophen [Percocet 10-325 mg Tablet] 1 tab PO Q6H PRN PRN 7 Days #28 tab 08/06/20 Following Prescriptions Were Given to Patient: Naproxen 500 mg PO BID 15 Days #30 tab Transmission Status: Received by [facility] Oxycodone HCl/Acetaminophen [Percocet 10-325 mg Tablet] 1 tab PO Q6H PRN PRN 7 Days #28 tab PRN Reason: Pain Score 4-10/10 Transmission Status: Received by [facility] Primary Care Physician: Care Physician,No Primary [Primary Care Provider] - Please Follow Up With: Megha Mckeon DPM When: Aug [facility]. Call [phone] sooner if concerns Disposition: Home Minutes spent on discharge:: 25 Patient Condition:: Good Medical Necessity - Tobacco Use Smoking Status: Former smoker - Quit April 2020 Tobacco Use: Non-smoker Meaningful Use Info Meaningful Use Diagnoses (Choose all that apply): None applicable
--- NOTE | 2020-08-06 10:45 | PCM.DC.POD ---
Discharge Diet: No Restrictions Discharge Activity: May Shower - use shower bag and keep dressing and splint clean, dry, and intact Weight Bearing Status: No weight bearing - use crutches for assistance Keep extremity elevated above heart level: Right Leg Call your doctor if your incision/area has: Continuous Slow Oozing, Sudden Increased Bleeding, Increased Pain/ Swelling, Increased Redness, Foul Smelling Discharge, Swelling at the incision site Call your doctor if you observe: Fever of 101 or Higher, Numbness or Tingling, Shortness of breath, Calf discomfort, Uncontrolled pain Cleanse incision/area with: Keep Dressing Clean & Dry Additional Instructions: Use your incentive spirometer hourly while awake. Allergies/Adverse Reactions: Allergies No Known Allergies Allergy (Verified 08/02/20 15:19) Medications to take at Discharge Naproxen 500 mg PO BID 15 Days #30 tab 08/06/20 Oxycodone HCl/Acetaminophen [Percocet 10-325 mg Tablet] 1 tablet PO Q6H PRN PRN 7 Days #28 tablet 08/06/20 The following prescriptions were given: Naproxen 500 mg PO BID 15 Days #30 tab Transmission Status: Pending to [facility] Oxycodone HCl/Acetaminophen [Percocet 10-325 mg Tablet] 1 tablet PO Q6H PRN PRN 7 Days #28 tablet PRN Reason: Pain Score 4-10/10 Transmission Status: Sent to [facility] Primary Care Physician: Care Physician,No Primary [Primary Care Provider] - Test Results: Test results from this visit will be discussed in further detail at your follow-up appointment, if applicable. Please Follow Up With: Megha Mckeon DPM When: Aug [facility]. Call [phone] sooner if concerns. Proposed Discharge Date: 08/06/20
== END 2020-08-06 12:00 | disposition home or self-care (01) ==
LOC: SDC 19:08 → MS3 08-05 09:17
PROVIDERS: Admitting Provider Podiatrist; Referring Provider Podiatrist; Visit Provider Podiatrist
PROC: (CPT 28485; principal; 2020-08-04 12:40)
DX: S92.311A Displaced fracture of first metatarsal bone, right foot, initial encounter for closed fracture (principal); S92.351A Displaced fracture of fifth metatarsal bone, right foot, initial encounter for closed fracture; S92.321A Displaced fracture of second metatarsal bone, right foot, initial encounter for closed fracture; S92.341A Displaced fracture of fourth metatarsal bone, right foot, initial encounter for closed fracture; S92.331A Displaced fracture of third metatarsal bone, right foot, initial encounter for closed fracture; W11.XXXA Fall on and from ladder, initial encounter; Y93.H3 Activity, building and construction; Y92.9 Unspecified place or not applicable; Y99.0 Civilian activity done for income or pay; Z87.891 Personal history of nicotine dependence
CPT/HCPCS: 28485 ×5; 64445; 36415; 73630; 76000; 80053; 82306; 85025; 96361; 96374; 96375; 96376; 97161; 97162; 99218; 99251; C1713; J7120; A4216; G0378; G0379; G0463; J2405

== ENCOUNTER → 2021-05-31 15:43 | Outpatient (CLI) | payer SELFPAY ==
[2020-08-04 19:47] VITALS: BMI 30.8
[2021-05-31 17:41] LABS: Absolute Lymphocyte Count 2.66 X10^3/uL (0.83-4.51); Absolute Neutrophil Count 5.5 X10^3/uL (2.0-7.7); Basophil# 0.07 X10^3/uL; Basophil% 0.8 % (0-1); Eosinophil# 0.21 X10^3/uL; Eosinophils% 2.3 % (0-5); Hematocrit 41.2 % (40-54); Hemoglobin 14.1 g/dL (13.0-16.5); Lymphocyte # 2.66 X10^3/ul (0.83-4.51); Mean Corp Hgb Conc 34.2 g/dL (32-36); Mean Corpuscular Hgb 30.3 pg (27.0-32.0); Mean Corpuscular Volume 88.6 fL (80-94); Mean Platelet Vol. 11.4 fl (6.2-12.0); Monocyte# 0.75 X10^3/uL; Monocyte% 8.2 % (0-10); NRBC Flagged by Analyzer 0 % (0-5); Neutrophil # 5.45 X10^3/uL (2.7-7.7); Neutrophil % 59.5 % (47-70); Platelet Count 275 K/mm3 (150-450); RBC Distribution Width CV 12.4 % (11.6-14.6); RBC Distribution Width SD 40.5 fl (35.1-43.9); Red Blood Count 4.65 M/mm3 (4.6-6.2); White Blood Count 9.2 K/mm3 (4.4-11.0)
[2021-05-31 18:04] LABS: ALB/GLOB Ratio 1.4 RATIO (0.9-2.4); AST(SGOT) 23 U/L (15-37); Alanine Aminotransfer ALT/SGPT 35 U/L (16-61); Albumin, Serum 4.6 g/dL (3.2-5.0); Alkaline Phosphatase 82 U/L (45-117); Anion Gap 7 (5-15); BUN 14 mg/dL (7-18); BUN/Creat Ratio 14.8 RATIO (10-20); Calcium,Total 9.5 mg/dL (8.5-10.1); Chloride 104 mmol/L (98-107); Creatinine, Serum 0.95 mg/dL (0.70-1.30); EST Glomerular Filtration Rate 101 mL/min (>60); Est Glom Filt Rate - Afr Amer 122 mL/min (>60); Globulin 3.3 g/dL (2.2-4.2); Glucose 87 mg/dL (74-106); Potassium 3.8 mmol/L (3.5-5.1); Protein, Total 7.9 g/dL (6.4-8.2); Sodium Level 138 mmol/L (136-145)
== END ==
PROVIDERS: PCP Family Medicine; Referring Provider Family Medicine; Visit Provider Family Medicine
DX: Z01.812 Encounter for preprocedural laboratory examination (principal)
CPT/HCPCS: 36415; 80053; 85025